=== PATIENT | female | born 1995 | race Caucasian/White ===

== ENCOUNTER 2017-08-31 13:38 | Emergency (ER) | payer MEDICAID, OTHER ==
[~2017-08-31] VITALS: Ht 152.4 cm; Wt 79.4 kg
[2017-08-31 15:53] LABS: BASOPHILS % 0.6 % (0.0-2.0); EOSINOPHILS % 0.6 % (0.0-5.0); HEMATOCRIT. 39.1 % (36.0-48.0); HEMOGLOBIN. 13.1 g/dL (12.0-16.0); LYMPHOCYTES % 22.1 % (20.0-50.0); MEAN CORPUSCULAR HEMOGLOBIN 27.4 pg (28.0-32.0); MEAN PLATELET VOLUME 8.1 fl (7.4-10.4); MONOCYTES % 5.4 % (2.0-8.0); NEUTROPHILS % 71.3 % (40.0-76.0); PLATELET 338 x1000/uL (130-400); RED BLOOD CELL COUNT 4.77 mill/uL (4.2-5.4); RED CELL DISTRIBUTION WIDTH 13.3 % (11.6-14.6)
[2017-08-31 15:58] LABS: CHLORIDE 103 mEq/L (98-107)
[2017-08-31 16:00] LABS: INR 1.1
[2017-08-31 16:17] LABS: HCG SCREEN NEGATIVE
[2017-08-31 17:44] LABS: CLARITY URINE CLEAR (CLEAR); COLOR URINE YELLOW (YELLOW); KETONES URINE NEGATIVE (NEGATIVE); LEUKOCYTE ESTERASE URINE NEGATIVE (NEGATIVE); NITRITE URINE NEGATIVE (NEGATIVE); OCCULT BLOOD URINE NEGATIVE (NEGATIVE); PROTEIN URINE NEGATIVE (NEGATIVE); SPECIFIC GRAVITY URINE 1.014 (1.005-1.030)
[2017-08-31] MEDS ORDERED: IBUPROFEN 600MG TABLET PO ONE (19:45)
[2017-08-31 22:23] VITALS: BP 114/68
== END 2017-08-31 22:25 | disposition home or self-care (01) ==
LOC: ER 14:25
DX: R10.33 Periumbilical pain (principal); Q60.0 Renal agenesis, unilateral; Z98.890 Other specified postprocedural states; Z91.09 Other allergy status, other than to drugs and biological substances
CPT/HCPCS: 36415; 76705; 80053; 81003; 83690; 84703; 85025; 85610; 99285; Z7610

== ENCOUNTER 2019-04-12 16:49 | Emergency (ER) | payer MEDICAID ==
[~2019-04-12] VITALS: Ht 152.4 cm; Wt 84.0 kg
[2019-04-12 19:53] VITALS: BP 120/80
== END 2019-04-12 19:20 | disposition left against medical advice (07) ==
LOC: ER 16:49
DX: R00.2 Palpitations (principal); Z53.21 Procedure and treatment not carried out due to patient leaving prior to being seen by health care provider